=== PATIENT | female | born 1990 | race Asian ===

== ENCOUNTER 2024-05-14 03:06 | Emergency (ER) | payer OTHER ==
[~2024-05-14] VITALS: Ht 160 cm; Wt 62.7 kg
[2024-05-14 03:08] VITALS: BP 139/73; PULSE 78; RESP 22; TEMP 97.7
[2024-05-14] MEDS: SODIUM CHLORIDE 0.9% 1,000 ML IV ONE (03:29)
[2024-05-14] MEDS: METOCLOPRAMIDE HCL 5 MG/ML 2 ML VIAL IVP ONE (03:30)
[2024-05-14] MEDS: DiphenhydrAMINE HCL 50 MG/ML VIAL IVP ONE (03:30)
[2024-05-14] MEDS: KETOROLAC TROMETHAMINE 30 MG/ML VIAL IVP ONE (03:30)
== END 2024-05-14 05:47 | disposition home or self-care (01) ==
LOC: EMS 03:08
DX: G43.909 Migraine, unspecified, not intractable, without status migrainosus (principal)
CPT/HCPCS: 99284; 96374; 96375; 96361; J1200; J1885; J2765; J7030